=== PATIENT | male | born 1940 | race Caucasian/White ===

== ENCOUNTER 2017-06-24 12:02 | Emergency (ER) | payer MEDICARE, MEDICAID ==
[2017-06-24 12:02] VITALS: BMI 40.6
[2017-06-24 12:41] VITALS: TEMP 97.9
[2017-06-24] MEDS ORDERED: Sodium Chloride 0.9% 1,000 ML IV ONE (13:06)
[2017-06-24] MEDS ORDERED: Sodium Chloride 0.9% 1,000 ML ONE (13:17)
--- NOTE | 2017-06-24 13:39 | C.PDOC ---
History Of Present Illness 77 y/o male presents to ED with complaints of diffuse body pain x2 days. Pt with history of gout, takes colchecin. His typical flare-ups involve his elbows , knees and ankles. Denies podagra flares. Denies fever, chills, chest pain, SOB or any other complaints. Time Seen by Provider: 06/24/17 13:02 Chief Complaint (Nursing): Dizziness/Lightheaded History Per: Patient History/Exam Limitations: no limitations Onset/Duration Of Symptoms: Days Current Symptoms Are (Timing): Still Present Fall Associated With With Symptoms: No Severity: Mild Recent travel outside of the [place]: No Past Medical History Reviewed: Historical Data, Nursing Documentation, Vital Signs Vital Signs: Last Vital Signs Temp 97.9 F 06/24/17 12:20 Pulse 71 06/24/17 18:20 Resp 18 06/24/17 18:20 BP 171/84 H 06/24/17 18:20 Pulse Ox 97 06/24/17 18:20 - Medical History PMH: Benign Prostatic Hyperplasia, HTN, Hypercholesterolemia, Hypothyroidism Surgical History: CABG (x2) - [facility] Procedures CORONAR ARTERIOGR-2 CATH (09/17/14) DRAINAGE OF RIGHT KNEE JOINT, PERCUTANEOUS APPROACH (06/20/16) ENDOSC POLYPECTOMY OF LG INTEST (04/29/14) LEFT HEART CARDIAC CATH (09/17/14) LT HEART ANGIOCARDIOGRAM (09/17/14) VACCINATION NEC (09/17/14) Family History: States: Unknown Family Hx - Social History Hx Tobacco Use: No Hx Alcohol Use: No Hx Substance Use: No - Immunization History Hx Tetanus Toxoid Vaccination: No Hx Influenza Vaccination: No Hx Pneumococcal Vaccination: No Review Of Systems Except As Marked, All Systems Reviewed And Found Negative. Constitutional: Negative for: Fever, Chills Cardiovascular: Negative for: Chest Pain Respiratory: Negative for: Shortness of Breath Musculoskeletal: Positive for: Other (diffuse body pain) Physical Exam - Physical Exam Appears: Non-toxic, No Acute Distress, Other (obese) Skin: Warm, Dry, No Rash Head: Atraumatic, Normacephalic Neck: Normal, Normal ROM, Supple Chest: Symmetrical, No Tenderness Cardiovascular: Rhythm Regular, No Murmur Respiratory: Normal Breath Sounds, No Rales, No Rhonchi, No Wheezing Gastrointestinal/Abdominal: Normal Exam, Soft, No Tenderness Back: Normal Inspection Extremity: Normal ROM, No Pedal Edema Neurological/Psych: Oriented x3, Normal Speech, Normal Cognition ED Course And Treatment - Laboratory Results Result Diagrams: 06/24/17 13:36 06/24/17 13:36 Lab Interpretation: Normal O2 Sat by Pulse Oximetry: 96 (room air) Pulse Ox Interpretation: Normal Medical Decision Making Medical Decision Making: body aches/fatigue, no pna/pnx ? uncoiled aorta on CXR vs widened mediastinum, neg CT for dissection d/w jessee Leslie to d/c home with opt f/u. Disposition Doctor Will See Patient In The: Office Counseled Patient/Family Regarding: Studies Performed, Diagnosis - Disposition Disposition: HOME/ ROUTINE Disposition Time: 19:02 Condition: GOOD - Clinical Impression Clinical Impression: Body aches - Scribe Statement The provider has reviewed the documentation as recorded by the Lizbet Askew Provider Attestation: All medical record entries made by the Lizbet were at my direction and personally dictated by me. I have reviewed the chart and agree that the record accurately reflects my personal performance of the history, physical exam, medical decision making, and the department course for this patient. I have also personally directed, reviewed, and agree with the discharge instructions and disposition.
[2017-06-24 13:42] LABS: BASO % 0.2 % (0.0-2.0); EOS # 0.1 K/uL (0.0-0.7); EOS % 1.5 % (0.0-4.0); HEMOGLOBIN 14.5 g/dL (12.0-18.0); LYMPH # 1.3 K/uL (1.0-4.3); LYMPH % 13.3 % (20.0-40.0); MEAN CELL VOLUME 91.6 fL (80.0-94.0); MEAN CORPUSCULAR HEMOGLOBIN 30.8 pg (27.0-31.0); MEAN CORPUSCULAR HGB CONC 33.6 g/dL (33.0-37.0); MEAN PLATELET VOLUME 8.6 fL (7.2-11.7); MONO # 0.7 K/uL (0.0-0.8); MONO % 7.8 % (0.0-10.0); NEUT # 7.3 K/uL (1.8-7.0); NEUT % 77.2 % (50.0-75.0); RBC 4.71 Mil/uL (4.40-5.90); RED CELL DISTRIBUTION WIDTH 14.7 % (11.5-14.5); WHITE BLOOD COUNT 9.5 K/uL (4.8-10.8)
[2017-06-24 13:48] LABS: URINE BILIRUBIN NEGATIVE (NEGATIVE); URINE BLOOD NEGATIVE (NEGATIVE); URINE CLARITY Clear (Clear); URINE COLOR Amber (YELLOW); URINE GLUCOSE (UA) NORMAL (Normal); URINE LEUKOCYTE ESTERASE NEG Leu/uL (Negative); URINE NITRATE NEGATIVE (NEGATIVE); URINE PROTEIN NEGATIVE (NEGATIVE)
--- NOTE | 2017-06-24 13:54 | RAD ---
PROCEDURE: CHEST RADIOGRAPH, 1 VIEW HISTORY: SOB COMPARISON: 06/19/2016 FINDINGS: LUNGS: The lungs are well inflated and clear. PLEURA: No pneumothorax or pleural fluid seen. CARDIOVASCULAR: The heart is enlarged. There is unfolding of the aorta. Status post CABG. OSSEOUS STRUCTURES: No significant abnormalities. VISUALIZED UPPER ABDOMEN: Normal. OTHER FINDINGS: None. IMPRESSION: No acute findings.
[2017-06-24 13:56] LABS: ALBUMIN 3.1 g/dL (3.5-5.0)
[2017-06-24 13:57] LABS: BARBITURATES, UR NEGATIVE (NEGATIVE); BENZODIAZEPINES, UR NEGATIVE (NEGATIVE)
[2017-06-24 13:59] LABS: ALT/SGPT 22 U/L (21-72); AST/SGOT 18 U/L (17-59); BLOOD UREA NITROGEN 17 mg/dL (9-20); GFR AFRICAN-AMERICAN > 60; GFR NON-AFRICAN AMERICAN 59
[2017-06-24 14:00] LABS: CALCIUM 8.5 mg/dl (8.6-10.4)
[2017-06-24 14:02] LABS: OPIATES, UR NEGATIVE (NEGATIVE); PHENCYCLIDINE, UR NEGATIVE (NEGATIVE)
[2017-06-24 14:11] LABS: B-TYPE NATRIURETIC PEPTIDE 1460 pg/mL (0-900)
[2017-06-24] MEDS ORDERED: Iodixanol 320 MG/ML 100 ML BOTTLE IV ONE ×2 (15:14→16:58)
[2017-06-24 17:36] VITALS: RESP 18
--- NOTE | 2017-06-24 18:13 | CT ---
CT dissection protocol Indication: chest/back pain, widened mediastinum in CXR Technique: Contiguous axial images utilizing dissection protocol both without and with IV contrast. Coronal and Sagittal reformats generated and reviewed. This CT exam was performed using 1 or more of the following dose reduction techniques: Automated exposure control, adjustment of the MAA and/or kV according to patient size, and/or use of iterative reconstruction technique. Oral contrast was not administered. 100 cc visi opaque 320 Radiation dose: Total exam DLP = 2268.35 MGy-cm. Comparison: Chest x-ray performed 03/25/17, CTA chest performed 09/17/14 at Findings: Visualized portions of the inferior right thyroid pole appears grossly unremarkable. The inferior left thyroid pole is not visualized. The mediastinal and hilar vascular structures appear within normal limits. Median sternotomy wires. Cardiomegaly. Coronary artery calcifications. Bibasilar atelectasis. No focal consolidation. No significant pleural effusion. No pneumothorax. No suspicious pulmonary nodules measuring greater than 5 mm. Small hiatal hernia. Hepatomegaly. Overall hypoattenuation of the hepatic parenchyma consistent with hepatic steatosis. Numerous low-density lesions within the liver several which appears cystic and others which are incompletely characterized on this study or are too small to characterize. Atrophic bilateral kidneys and bilateral low-density lesions which appear consistent with cysts. Punctate approximately 2 mm nonobstructing left renal calculus. Pancreatic atrophy. The gallbladder and adrenal glands appear unremarkable. The stomach is nondistended. Lack of oral contrast limits evaluation for bowel pathology. The bowel loops appear within normal limits of caliber without evidence of intestinal obstruction. There is no definite free air. Fat containing right ventral abdominal wall hernia measures approximately 2.6 cm in transverse dimension. Enlarged prostate gland measures approximately 5.6 x 6.2 cm. The urinary bladder appears unremarkable. Osseous demineralization. Extensive degenerative changes of the spine including prominent anterior confluent osteophyte formation. Impression: No evidence of aortic aneurysm or dissection. Hepatomegaly. Hepatic steatosis. Numerous low-density lesions within the liver several which appears cystic and others which are incompletely characterized on this study or are too small to characterize. Atrophic bilateral kidneys and bilateral low-density lesions which appear consistent with cysts. Punctate approximately 2 mm nonobstructing left renal calculus. Fat containing right ventral abdominal wall hernia measures approximately 2.6 cm in transverse dimension. Enlarged prostate gland. Recommend correlation with PSA. Additional findings as above.
[2017-06-24 18:21] VITALS: BP 171/84; PULSE 71
[2017-06-24 19:02] VITALS: O2SAT 96
--- NOTE | 2017-06-26 09:04 | CARD ---
APPROVED REPORT EKG Measurement Heart [id number] <Conclusion> Sinus rhythm with marked sinus arrhythmia Right bundle branch block Left anterior fascicular block Bifascicular block Septal infarct, age undetermined Abnormal ECG
== END 2017-06-24 19:37 | disposition home or self-care (01) ==
LOC: C.ER 12:02
DX: M79.1 Myalgia (principal); I10 Essential (primary) hypertension; E78.00 Pure hypercholesterolemia, unspecified; Z87.891 Personal history of nicotine dependence
CPT/HCPCS: 71010; 71275; 74175; 80053; 81001; 83880; 84484; 85025; 96361; 96374; 99285; G0480; J1885; J7040; Q9967

== ENCOUNTER 2017-11-06 18:41 | Emergency (ER) | payer OTHER, MEDICAID ==
[2017-11-06 18:42] VITALS: BMI 40.6
[2017-11-06 18:44] VITALS: RESP 18
--- NOTE | 2017-11-06 19:17 | C.PDOC ---
History Of Present Illness 77 year old male presents to the ED c/o B/L foot swelling and pain for the past 3-4 days. Patient states taking medications with no relief. Patient denies any fever, nausea, vomit, weakness, numbness, CP, SOB, headache. Chief Complaint (Nursing): Lower Extremity Problem/Injury History Per: Patient History/Exam Limitations: no limitations Onset/Duration Of Symptoms: Days Current Symptoms Are (Timing): Still Present Severity: None Recent travel outside of the [place]: No Additional History Per: Patient Past Medical History Reviewed: Historical Data, Nursing Documentation, Vital Signs Vital Signs: Last Vital Signs Temp 97.3 F L 11/06/17 18:43 Pulse 78 11/06/17 18:43 Resp 18 11/06/17 18:43 BP 159/63 H 11/06/17 18:43 Pulse Ox 96 11/07/17 01:32 - Medical History PMH: Benign Prostatic Hyperplasia, HTN, Hypercholesterolemia, Hypothyroidism Denies: Chronic Kidney Disease Surgical History: CABG (x2) - [facility] Procedures CORONAR ARTERIOGR-2 CATH (09/17/14) DRAINAGE OF RIGHT KNEE JOINT, PERCUTANEOUS APPROACH (06/20/16) ENDOSC POLYPECTOMY OF LG INTEST (04/29/14) LEFT HEART CARDIAC CATH (09/17/14) LT HEART ANGIOCARDIOGRAM (09/17/14) VACCINATION NEC (09/17/14) Family History: States: Unknown Family Hx - Social History Hx Tobacco Use: No Hx Alcohol Use: No Hx Substance Use: No - Immunization History Hx Tetanus Toxoid Vaccination: No Hx Influenza Vaccination: No Hx Pneumococcal Vaccination: No Review Of Systems Constitutional: Negative for: Fever, Chills Cardiovascular: Negative for: Chest Pain, Palpitations Respiratory: Negative for: Cough, Shortness of Breath Gastrointestinal: Negative for: Nausea, Vomiting, Abdominal Pain Skin: Negative for: Rash Neurological: Negative for: Weakness, Numbness Physical Exam - Physical Exam Appears: Non-toxic, No Acute Distress Skin: Normal Color, Warm, Dry Head: Atraumatic, Normacephalic Nose: No Discharge Oral Mucosa: Moist Neck: Normal ROM, Supple Chest: Symmetrical Cardiovascular: Rhythm Regular, No Murmur Respiratory: Normal Breath Sounds, No Rales, No Rhonchi, No Wheezing Gastrointestinal/Abdominal: Soft, No Tenderness Extremity: Normal ROM, No Tenderness, No Calf Tenderness, No Deformity, Swelling (B/L feet) Neurological/Psych: Oriented x3, Normal Speech, Normal Cognition Gait: Steady ED Course And Treatment - Laboratory Results Result Diagrams: 11/06/17 19:48 11/06/17 19:48 O2 Sat by Pulse Oximetry: 96 (On RA) Pulse Ox Interpretation: Normal Medical Decision Making Medical Decision Making: Plan: * Blood work ordered * Indocin 50 mg PO given * Toradol 30 mg IVP given * UA ordered Disposition Counseled Patient/Family Regarding: Diagnosis - Disposition Referrals: [facility] [Outside] Disposition: HOME/ ROUTINE Disposition Time: :29 Condition: STABLE Additional Instructions: increased fluids by mouth. leg elevation Prescriptions: Naproxen 375 mg PO TIDPC #14 tablet Instructions: Gout (ED), Arthralgia (ED), Leg Pain (ED) Forms: [employer] (Cameroonian) - POA Present On Arrival: None - Clinical Impression Clinical Impression: Leg pain, Arthralgia, Gout - Scribe Statement The provider has reviewed the documentation as recorded by the Scribmatthew Jaramillo All medical record entries made by the Scribe were at my direction and personally dictated by me. I have reviewed the chart and agree that the record accurately reflects my personal performance of the history, physical exam, medical decision making, and the department course for this patient. I have also personally directed, reviewed, and agree with the discharge instructions and disposition.
[2017-11-06 19:54] LABS: BASO # 0.1 K/uL (0.0-0.2); BASO % 0.7 % (0.0-2.0); EOS % 0.4 % (0.0-4.0); HEMATOCRIT 48.9 % (35.0-51.0); LYMPH # 1.5 K/uL (1.0-4.3); LYMPH % 12.6 % (20.0-40.0); MEAN CELL VOLUME 91.2 fL (80.0-94.0); MEAN CORPUSCULAR HEMOGLOBIN 30.9 pg (27.0-31.0); MEAN CORPUSCULAR HGB CONC 33.8 g/dL (33.0-37.0); MEAN PLATELET VOLUME 8.3 fL (7.2-11.7); MONO # 1.1 K/uL (0.0-0.8); MONO % 9.6 % (0.0-10.0); NRBC % 0.1 % (0.0-2.0); RED CELL DISTRIBUTION WIDTH 14.2 % (11.5-14.5); WHITE BLOOD COUNT 11.7 K/uL (4.8-10.8)
[2017-11-06 20:07] LABS: CALCIUM 8.6 mg/dl (8.6-10.4)
[2017-11-06 20:10] LABS: ALB/GLOB RATIO 1.2 (1.0-2.1); BILIRUBIN,TOTAL 1.8 mg/dL (0.2-1.3); POTASSIUM 5.4 mmol/L (3.6-5.2); TOTAL PROTEIN 7.8 g/dL (6.3-8.3); URIC ACID 7.2 mg/dL (3.5-8.5)
[2017-11-06] MEDS ORDERED: Sodium Chloride 0.9% 500 ML IV ONE (23:39)
[2017-11-06] MEDS ORDERED: Sodium Chloride 0.9% 1,000 ML IV ONE (23:40)
[2017-11-07 01:06] LABS: RBC URINE 2 /hpf (0-3); URINE BACTERIA RARE (<OCC); URINE BILIRUBIN NEGATIVE (NEGATIVE); URINE BLOOD NEGATIVE (NEGATIVE); URINE COLOR Amber (YELLOW); URINE GLUCOSE (UA) NORMAL (Normal); URINE KETONE NEGATIVE (NEGATIVE); URINE LEUKOCYTE ESTERASE NEG Leu/uL (Negative); URINE PROTEIN 1+ mg/dL (NEGATIVE); WBC URINE 4 /hpf (0-5)
[2017-11-07 02:02] VITALS: BP 190/80; PULSE 77; TEMP 97.8; O2SAT 99
== END 2017-11-07 03:08 | disposition home or self-care (01) ==
LOC: C.ER 18:41
DX: M10.9 Gout, unspecified (principal); M25.572 Pain in left ankle and joints of left foot; M25.571 Pain in right ankle and joints of right foot
CPT/HCPCS: 80053; 81001; 84550; 85025; 96361; 96374; 99284; J1885; J7040

== ENCOUNTER 2018-10-04 16:50 | Inpatient (IN) | payer MEDICARE, MEDICAID ==
[2018-10-04 16:51] VITALS: BMI 40.6
[2018-10-04] MEDS: Sodium Chloride 0.9% 1,000 ML IV SCH (17:33)
[2018-10-04] MEDS ORDERED: Sodium Chloride 0.9% 1,000 ML ONE (17:37)
[2018-10-04 17:42] LABS: INR 1.5; PROTHROMBIN TIME 16.8 SECONDS (9.7-12.2)
[2018-10-04 17:43] LABS: BASO % 0.1 % (0.0-2.0); HEMOGLOBIN 15.8 g/dL (12.0-18.0); LYMPH # 0.7 K/uL (1.0-4.3); LYMPH % 4.9 % (20.0-40.0); MEAN CORPUSCULAR HEMOGLOBIN 30.5 pg (27.0-31.0); MEAN CORPUSCULAR HGB CONC 34.3 g/dL (33.0-37.0); MEAN PLATELET VOLUME 8.4 fL (7.2-11.7); MONO # 0.8 K/uL (0.0-0.8); MONO % 6.1 % (0.0-10.0); NEUT # 12.3 K/uL (1.8-7.0); NEUT % 88.9 % (50.0-75.0); PLATELET COUNT 189 K/uL (130-400); RBC 5.19 Mil/uL (4.40-5.90); RED CELL DISTRIBUTION WIDTH 14.2 % (11.5-14.5); WHITE BLOOD COUNT 13.8 K/uL (4.8-10.8)
--- NOTE | 2018-10-04 18:01 | CT ---
Date of service: 10/04/2018 PROCEDURE: CT HEAD WITHOUT CONTRAST. HISTORY: R body pain/weak x 2 D, ? thalamic COMPARISON: Noncontrast head CT 06/20/2016. TECHNIQUE: Axial computed tomography images were obtained through the head/brain without intravenous contrast. Radiation dose: Total exam DLP = 1165.13 mGy-cm. This CT exam was performed using one or more of the following dose reduction techniques: Automated exposure control, adjustment of the mA and/or kV according to patient size, and/or use of iterative reconstruction technique. FINDINGS: HEMORRHAGE: No intracranial hemorrhage. BRAIN: Bilateral chronic lacunes are identified with 1 at the left thalamus and 3 at the right thalamus as well as inferiorly involving the caudate heads and bodies bilaterally. Good corticomedullary differentiation is again seen. Reiterated diffuse cerebral atrophy and chronic microangiopathy. No suspicious extra-axial fluid collection is identified and the midline brain anatomy appears grossly nonfocal as imaged. No mass effect identified. VENTRICLES: Unremarkable. No hydrocephalus. CALVARIUM: Unremarkable. PARANASAL SINUSES: Unremarkable as visualized. No significant inflammatory changes. MASTOID AIR CELLS: Unremarkable as visualized. No inflammatory changes. OTHER FINDINGS: None. IMPRESSION: No definite acute intracranial findings as discussed above. Stable age-related degenerative change are identified as well as bilateral chronic lacunes as discussed above. Follow-up CT or MRI are available if clinically warranted.
[2018-10-04 18:04] LABS: ALB/GLOB RATIO 1.2 (1.0-2.1); ALBUMIN 3.8 g/dL (3.5-5.0); ALT/SGPT 16 U/L (21-72); AST/SGOT 15 U/L (17-59); BLOOD UREA NITROGEN 18 mg/dL (9-20); CALCIUM 9.2 mg/dl (8.6-10.4); GFR NON-AFRICAN AMERICAN 54; HDL CHOLESTEROL 37 mg/dL (30-70)
[2018-10-04 18:05] LABS: BANDS 1 % (0-2); LYMPHOCYTE 4 % (20-40); MONOCYTE 2 % (0-10); NEUTROPHIL 93 % (50-75); PLATELET ESTIMATE NORMAL (NORMAL); TOTAL CELLS COUNTED 100
[2018-10-04 18:06] LABS: ANISOCYTOSIS SLIGHT
[2018-10-04 18:07] LABS: LARGE PLATELETS PRESENT; OVALOCYTES SLIGHT; POIKILOCYTOSIS SLIGHT
[2018-10-04 18:15] LABS: LDL CHOLESTEROL 92 mg/dL (0-129)
--- NOTE | 2018-10-04 18:32 | C.PDOC ---
History Of Present Illness 78 year old male presents to ED complaining of x2 days of worsening pain to right elbow and right wrist making it painful to move right arm. Patient also complains of pain to right knee and right ankle making it painful to move right leg. Denies fever, chills, chest pain, cough, shortness of breath, nausea, vomiting, diarrhea, headache, dizziness, weakness, numbness. Chief Complaint (Nursing): Upper Extremity Problem/Injury History Per: Patient History/Exam Limitations: no limitations Onset/Duration Of Symptoms: Days Current Symptoms Are (Timing): Still Present Past Medical History Reviewed: Historical Data, Nursing Documentation, Vital Signs Vital Signs: Last Vital Signs Temp 98.5 F 10/04/18 17:06 Pulse 87 10/04/18 18:11 Resp 20 10/04/18 18:11 BP 199/95 H 10/04/18 18:11 Pulse Ox 95 10/04/18 18:11 - Medical History PMH: Benign Prostatic Hyperplasia, HTN, Hypercholesterolemia, Hypothyroidism Denies: Chronic Kidney Disease Surgical History: CABG (x2) - [facility] Procedures CORONAR ARTERIOGR-2 CATH (09/17/14) DRAINAGE OF RIGHT KNEE JOINT, PERCUTANEOUS APPROACH (06/20/16) ENDOSC POLYPECTOMY OF LG INTEST (04/29/14) LEFT HEART CARDIAC CATH (09/17/14) LT HEART ANGIOCARDIOGRAM (09/17/14) VACCINATION NEC (09/17/14) Family History: States: No Known Family Hx - Social History Hx Tobacco Use: No Hx Alcohol Use: No Hx Substance Use: No - Immunization History Hx Tetanus Toxoid Vaccination: No Hx Influenza Vaccination: No Hx Pneumococcal Vaccination: No Review Of Systems Except As Marked, All Systems Reviewed And Found Negative. Constitutional: Negative for: Fever, Chills Cardiovascular: Negative for: Chest Pain Respiratory: Negative for: Cough, Shortness of Breath Gastrointestinal: Negative for: Nausea, Vomiting, Diarrhea Musculoskeletal: Positive for: Arm Pain (Worsening pain to right elbow and right wrist.), Leg Pain (Pain to right knee and right ankle.) Neurological: Negative for: Weakness, Numbness, Headache, Dizziness Physical Exam - Physical Exam Appears: Non-toxic, Other (In mild distress.) Skin: Warm, Dry Head: Atraumatic, Normacephalic Eye(s): bilateral: PERRL, EOMI Oral Mucosa: Moist Neck: Supple Chest: Symmetrical, No Deformity Cardiovascular: Rhythm Regular, No Murmur Respiratory: Normal Breath Sounds, No Rales, No Rhonchi, No Wheezing Gastrointestinal/Abdominal: Soft, No Tenderness Extremity: Other (Pain with movement of right elbow and wrist. Pain with movement of right knee and right ankle.) Neurological/Psych: Oriented x3 ED Course And Treatment - Laboratory Results Result Diagrams: 10/04/18 17:00 10/04/18 17:00 Lab Interpretation: Abnormal ECG: Interpreted By Me ECG Rhythm: Sinus Rhythm, R BBB, Nonspecific Changes (LAFB) ECG Interpretation: Normal Rate From EC O2 Sat by Pulse Oximetry: 95 (RA) Pulse Ox Interpretation: Normal - Radiology CXR: Interpreted by Me CXR Interpretation: Yes: Heart Size, Other (widened mediastinum, previously described and CTA without dissection 06/17) Reevaluation Time: 18:33 Reassessment Condition: Improved - Physician Consult Information Outcome Of Conversation: 1830: d/w Dr Mosqueda ok to admit. Recognizes pt's s/s of gouty attack, and ordered Solumedrol and Colchicine in ED. OK to admit. Medical Decision Making Medical Decision Making: gouty attack x 2 days with pain R arm/elbow/wrist c/w prior gouty attacks. leukocytosis supports head ct unchanged Disposition Doctor Will See Patient In The: Hospital Counseled Patient/Family Regarding: Studies Performed, Diagnosis - Disposition Disposition: HOSPITALIZED Disposition Time: 18:34 Condition: FAIR - Clinical Impression Clinical Impression: Gout attack - Scribe Statement The provider has reviewed the documentation as recorded by the Lizbet Murdock Jeison Provider Attestation: All medical record entries made by the Lizbet were at my direction and personally dictated by me. I have reviewed the chart and agree that the record accurately reflects my personal performance of the history, physical exam, medical decision making, and the department course for this patient. I have also personally directed, reviewed, and agree with the discharge instructions and disposition.
[2018-10-04 20:31] LABS: SQUAMOUS EPITHIAL < 1 /hpf (0-5); URINE BILIRUBIN NEGATIVE (NEGATIVE); URINE BLOOD 1+ (NEGATIVE); URINE CLARITY Clear (Clear); URINE COLOR Amber (YELLOW); URINE GLUCOSE (UA) 1+ mg/dL (Normal); URINE LEUKOCYTE ESTERASE NEG Leu/uL (Negative); URINE PROTEIN 2+ mg/dL (NEGATIVE)
[2018-10-04 21:21] VITALS: RESP 20
[2018-10-05] MEDS: Sodium Chloride 0.9% 1,000 ML IV SCH ×4 (03:15→23:15)
[2018-10-05] MEDS: Levothyroxine 100 MCG TAB PO SCH (06:34)
--- NOTE | 2018-10-05 09:58 | RAD ---
Date of service: 10/04/2018 HISTORY: Code Stroke COMPARISON: Portable chest 06/24/2017. FINDINGS: LUNGS: No active pulmonary disease. PLEURA: No significant pleural effusion identified, no pneumothorax apparent. CARDIOVASCULAR: No aortic atherosclerotic calcification present. Prominent cardiac silhouette stable. No pulmonary vascular congestion. OSSEOUS STRUCTURES: Sternotomy wires reiterated. VISUALIZED UPPER ABDOMEN: Normal. OTHER FINDINGS: None. IMPRESSION: No interval acute cardiopulmonary disease appreciable. Prominent cardiac silhouette reiterated.
[2018-10-05] MEDS: Vitamin B Complex/Vitamin C Tab PO SCH (10:22)
[2018-10-05] MEDS: Metoprolol Succinate 50 mg XL Tab PO SCH (10:23)
[2018-10-05] MEDS: MethylPREDNISolone 40 mg Vial IV SCH (10:26)
--- NOTE | 2018-10-05 12:32 | HP ---
HISTORY OF PRESENT ILLNESS: This is a 78-year-old German male with history of multiple medical problems, presented with symptoms of right upper extremity pain. The patient stated that the pain started of admission. The patient stated that he has difficulty moving his upper right extremity as well as pain on the right knee also. The patient was evaluated in emergency room and admitted for further management. Other review of systems is negative. ALLERGIES: NO KNOWN ALLERGY. MEDICATIONS: As per MAR were reviewed and ordered. SOCIAL HISTORY: No history of smoking, EtOH or substance abuse. FAMILY HISTORY: Not contributory. PAST MEDICAL HISTORY: Coronary artery disease, status post coronary artery bypass graft, gouty arthritis, hypertension. PHYSICAL EXAMINATION: GENERAL: The patient is in bed, not in any cardiopulmonary distress, but he is in pain. VITAL SIGNS: Blood pressure 154/69, temperature 98.2, respiratory rate 20, pulse 68. HEENT: Pupils equal, reactive to light. Normal-appearing mucosa of the conjunctivae, oropharynx and nasal membrane mucosa. NECK: Supple. No JVD. No carotid bruit. No lymph node. No thyromegaly. CHEST AND LUNGS: Bilateral symmetrical expansion. Good air exchange. No rales. No rhonchi. CARDIOVASCULAR SYSTEM: PMI not localized. S1 and S2. No additional sounds. ABDOMEN: Normoactive bowel sounds. No tenderness. No organomegaly. No masses. EXTREMITIES: The patient has warmness and tenderness on the right elbow as well as right wrist with decreased range of motion. CENTRAL NERVOUS SYSTEM: Alert, awake, oriented x2. No neurological deficit could be appreciated. ASSESSMENT: 1. Possible acute multi-joint gouty arthritis. 2. Hypertension. 3. Osteoarthritis. 4. Coronary artery disease status post coronary artery bypass graft. PLAN: We will start the patient on Solu-Medrol and colchicine. Continue current medications. Resume the patient's home medicine. Lilliana Mosqueda MD
[2018-10-06] MEDS: Sodium Chloride 0.9% 1,000 ML IV SCH ×3 (06:23→18:17)
[2018-10-06] MEDS: Levothyroxine 100 MCG TAB PO SCH (06:23)
--- NOTE | 2018-10-06 09:26 | PN ---
DATE: 10/05/2018 DAILY PROGRESS NOTE SUBJECTIVE: The patient is seen today, 10/05/2018. He still has pain on the right upper extremity which is less compared to the admission. PHYSICAL EXAMINATION: VITAL SIGNS: Blood pressure 136/72, temperature 97.9, respiratory rate 20, and pulse 77. HEENT: Pupils equal and reactive to light. Normal-appearing mucosa of the conjunctivae, oropharynx, and nasal membrane mucosa. NECK: Supple. No JVD. No carotid bruit. No lymph node. No thyromegaly. CHEST AND LUNGS: Bilateral symmetrical expansion. Good air exchange. No rales. No rhonchi. CARDIOVASCULAR SYSTEM: PMI not localized. S1 and S2. No additional sounds. ABDOMEN: Normoactive bowel sounds. No tenderness. No organomegaly. No masses. EXTREMITIES: No cyanosis, no clubbing, no edema. Right elbow and wrist still have tenderness as well as the right shoulder. CENTRAL NERVOUS SYSTEM: Alert, awake, oriented x2. No neurological deficit could be appreciated. ASSESSMENT: 1. Multiple joints acute gouty arthritis. 2. Hypertension. 3. Coronary artery disease, status post coronary artery bypass graft. PLAN: Continue colchicine and steroids. We will do x-ray of the right shoulder. Lilliana Mosqueda MD
[2018-10-06] MEDS: Vitamin B Complex/Vitamin C Tab PO SCH (10:42)
[2018-10-06] MEDS: Metoprolol Succinate 50 mg XL Tab PO SCH (10:42)
[2018-10-06] MEDS: MethylPREDNISolone 40 mg Vial IV SCH (10:45)
--- NOTE | 2018-10-06 14:23 | RAD ---
PROCEDURE: Radiographs of the right forearm. HISTORY: right arm gouty arthritis with pain and swelling COMPARISON: None available. TECHNIQUE: Frontal and lateral views obtained. FINDINGS: BONES: Osseous demineralization. No acute displaced fracture. JOINT SPACES: No dislocation. OTHER FINDINGS: Soft tissue swelling. No evidence of radiopaque foreign body. IMPRESSION: Soft tissue swelling. No acute osseous abnormality detected. Correlate clinically.
[2018-10-06 15:02] LABS: CALCIUM 8.8 mg/dl (8.6-10.4); GFR NON-AFRICAN AMERICAN 54; URIC ACID 5.8 mg/dL (3.5-8.5)
[2018-10-06 15:19] LABS: BLOOD UREA NITROGEN 41 mg/dL (9-20)
--- NOTE | 2018-10-07 04:22 | PN ---
DATE: 10/06/2018 SUBJECTIVE: The patient is seen today, 10/06/2018. He has better mobility of his right upper extremity. PHYSICAL EXAMINATION: VITAL SIGNS: Blood pressure is 157/76, temperature 97.7, respiratory rate 20, and pulse 81. HEENT: Pupils equal, reactive to light. Normal appearing mucosa of the conjunctivae, oropharynx and nasal membrane mucosa. NECK: Supple. No JVD. No carotid bruit. No lymph node. No thyromegaly. CHEST: Lungs, bilateral symmetrical expansion. Good air exchange. No rales, no rhonchi. CARDIOVASCULAR: PMI not localized. S1, S2. No additional sounds. ABDOMEN: Normoactive bowel sounds. No tenderness. No organomegaly. No masses. EXTREMITIES: No cyanosis, no clubbing, no edema. [employer]: Alert, awake, oriented x2. No neurological deficit could be appreciated. ASSESSMENT: Multiple joint gouty arthritis, hypertension, coronary artery disease, status post coronary artery bypass graft. PLAN: Continue current medications including prednisone and colchicine, venous Doppler of the upper extremity to rule out DVT. Continue home medications. Lilliana Mosqueda MD
[2018-10-07] MEDS: Sodium Chloride 0.9% 1,000 ML IV SCH (05:14)
[2018-10-07] MEDS: Levothyroxine 100 MCG TAB PO SCH (06:25)
[2018-10-07 07:49] VITALS: BP 174/78; PULSE 60; TEMP 97.9; O2SAT 97
[2018-10-07] MEDS: Vitamin B Complex/Vitamin C Tab PO SCH (11:50)
[2018-10-07] MEDS: Metoprolol Succinate 50 mg XL Tab PO SCH (11:51)
[2018-10-07] MEDS: MethylPREDNISolone 40 mg Vial IV SCH (11:51)
--- NOTE | 2018-10-07 15:47 | CARD ---
APPROVED REPORT Date of service: 10/04/2018 EKG Measurement Heart [id number] CT 150P16 [id number] <Conclusion> Normal sinus rhythm Right bundle branch block Left anterior fascicular block Bifascicular block Voltage criteria for left ventricular hypertrophy Abnormal ECG
--- NOTE | 2018-10-07 18:29 | CP.PCM.PN ---
Objective - Vital Signs/Intake and Output Vital Signs (last 24 hours): Temp Pulse Resp BP Pulse Ox 97.9 F 60 20 174/78 H 97 10/07/18 07:00 10/07/18 07:00 10/07/18 07:00 10/07/18 07:00 10/07/18 07:00 Intake and Output: 10/07/18 10/07/18 06:59 18:59 Intake Total 2100 Output Total 1650 Balance 450 - Labs Labs: 10/04/18 17:00 10/06/18 13:45 PT 16.8 SECONDS (9.7-12.2) H 10/04/18 17:00 INR 1.5 10/04/18 17:00 APTT 32 SECONDS (21-34) 10/04/18 17:00 Assessment and Plan - Assessment and Plan (Free Text) Assessment: 78 year old male admitted with gouty arthritis, seen and examined. Right arm swelling has been resolving.
--- NOTE | 2018-10-08 20:49 | DS ---
REASON FOR ADMISSION: This is a 78-year-old [place] Islander male with history of multiple medical problems who was admitted for multiple joint acute gouty arthritis in the right upper extremity. COURSE OF HOSPITALIZATION: The patient was admitted to medical floor, and he was started on both IV steroids and colchicine. The patient's symptoms gradually improved, and the patient started to regain movement in his upper extremity. The patient was discharged home in a stable condition. To continue tapered steroids as well as colchicine and to be followed as an outpatient by Dr. Mosqueda. FINAL DIAGNOSES: Multiple joint gouty arthritis, hypertension, coronary artery disease, status post coronary artery bypass graft. [facility] MD Panda
== END 2018-10-07 13:46 | disposition home or self-care (01) | DRG 554 ==
LOC: C.ER 16:50 → C.3T 18:34
PROVIDERS: ADMIT Internal Medicine; ATTEND Internal Medicine
DX: M10.9 Gout, unspecified (principal); D72.829 Elevated white blood cell count, unspecified; I10 Essential (primary) hypertension; I25.10 Atherosclerotic heart disease of native coronary artery without angina pectoris; N40.0 Benign prostatic hyperplasia without lower urinary tract symptoms; Z95.1 Presence of aortocoronary bypass graft; E78.00 Pure hypercholesterolemia, unspecified; M19.90 Unspecified osteoarthritis, unspecified site; E03.9 Hypothyroidism, unspecified